=== PATIENT | male | born 1995 | race Caucasian/White ===

== ENCOUNTER 2020-07-25 20:17 | Emergency (ER) | payer BC, SELFPAY ==
[2020-07-25 20:22] VITALS: BP 133/97; PULSE 83; RESP 18; TEMP 37; O2SAT 97
--- NOTE | 2020-07-25 20:23 | DI.RAD_ITS ---
EXAM: XR KNEE LT 4V AP,LAT,LYNNE,PAT CLINICAL HISTORY: fell, laceration, r/o patella fracture. TECHNIQUE: 2D digital imaging was performed. COMPARISON: No exams were available for comparison FINDINGS: BONES: No acute fracture is present. No bony destructive lesion is seen. JOINTS: The knee is normally aligned. No joint effusion is seen. SOFT TISSUE: 1 cm deep laceration anterior to the patella. No radiopaque foreign body. IMPRESSION: Soft tissue laceration anterior to the patella. DATA REPOSITORY: RADIATION DOSE DELIVERED:
--- NOTE | 2020-07-25 20:24 | ED.GENADUL_ITS ---
Discharge Plan Disposition Patient Disposition: HOME Condition: Good Discharge Details Chief Complaint: Laceration Clinical Impression: Laceration of knee, left Primary Care Provider: [facility] ED Provider: Donovan Muñiz Home Meds and New Rx's Prescriptions: No Action No Known Home Meds RF: 0 Discharge Instructions Instructions: Laceration (ED) Additional Instructions: Please leave the dressing on for 24 hours, then you may remove and begin cleaning the wound at least twice a day with soap and water. Continue to apply antibiotic ointment. Do not directly soak the area. Watch for any signs of infection and return if any increasing redness, swelling, pain, drainage. Please return in 7 to 10 days to have the sutures removed. If you notice any worsening of your symptoms, or any new symptoms such as vomiting, diarrhea, fever, chills, shortness of breath, chest pain, numbness, weakness, or fainting , please return immediately to the emergency department for reevaluation. Please follow up with your primary care provider as soon as possible for reassessment and reevaluation. As always, it was a pleasure participating in your medical care today. Please take a multivitamin and vitamin C to help with skin healing. Please take Tylenol and Motrin to help with the swelling. Stand Alone Forms: Work Release Medical Decision Making 25-year-old male who presents for evaluation of laceration to the left knee. Patient states he was working on his ATV when he slipped in the peg hit his left knee causing a notable laceration. His tetanus was updated per the patient in 2014. He denies any numbness or tingling, he denies any weakness. He does have mild pain with walking ambulation. No other modifying factors. No other complaints at this time exam demonstrates an L-shaped laceration over the left knee. Tetanus is up-to-date. We will get an x-ray to evaluate for fracture of the patella. No evidence of tibial plateau tenderness. Will suture the lesion after washout. 9:58 PM X-ray was negative for acute process or fracture. 9 simple interrupted sutures were placed, patient tolerated this well. No evidence of deep involvement or capsular involvement from the knee. Patient's tetanus is up-to-date. Recommend Tylenol Motrin for pain. Discussed red flags which to return. I have extensively reviewed the treatment plan and discharge instructions with the patient. I have addressed all patient concerns at this time. The patient was made aware of what symptoms to monitor for that would warrant a return to the emergency department. Discussed the plan with the patient, they demonstrate verbal understanding and agreement with our assessment and plan at this time. FINDINGS: Bones/joints: Normal. Soft tissues: 1 cm deep laceration anterior to patella. No radiopaque foreign body demonstrated IMPRESSION: Laceration. Thank you for allowing us to participate in the care of your patient. Dictated and Authenticated by: Otis Ferro DO 07/25/2020 9:09 PM Eastern Time ([place] & [place]) HPI General Date/Time Provider Initiated Documentation: 07/25/20 20:21 . HPI Narrative: 25-year-old male who presents for evaluation of laceration to the left knee. Patient states he was working on his ATV when he slipped in the peg hit his left knee causing a notable laceration. His tetanus was updated per the patient in 2014. He denies any numbness or tingling, he denies any weakness. He does have mild pain with walking ambulation. No other modifying factors. No other complaints at this time Related Data Home Medications Medication Instructions Recorded Confirmed Unknown [No Known Home Meds] 07/01/15 07/25/20 Allergies Allergy/AdvReac Type Severity Reaction Status Date / Time hay Allergy Mild Uncoded 07/25/20 20:34 Review of Systems All systems reviewed & are unremarkable except as noted in HPI and below PFSH Social History Smoking/Tobacco Use Status: Never Alcohol Intake: current Alcohol Intake frequency: a few times a week Drug use: Occasionally Substance use type: marijuana Do you feel safe at home: Yes Do you feel safe in your relationship?: Yes Exam Narrative Exam Narrative: 1.Const: Well-nourished, Well-developed, appearing stated age 2.Eyes: PERRL, no conjunctival injection, and symmetrical lids. 3.ENT: Atraumatic external nose and ears. Moist MM. Neck: Symmetric, trachea midline, No thyromegaly. 4.CVS: +S1/S2, No murmurs or gallops. Peripheral pulses 2+ and equal in all extremities. Brisk capillary refill in all extremities. 5.RESP: Unlabored respiratory effort. Clear to auscultation bilaterally. No wheezes rales or rhonchi 6.GI: Soft, Nontender/Nondistended, No hepatosplenomegaly. No guarding or rebound. 7.MSK: The knee is stable to varus, valgus, and anterior drawer stress. No deformity. Pain over the patella. Patient is able to walk with mild limp. No edema or warmth to the joint. No ttp to the tibial plateau, or fibular head. 8.Skin: Warm, Dry. No rashes or lesions. 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 Sensation grossly intact, no focal neurologic deficits. 10.Psych: (AAO) x3. Appropriate mood and affect Procedures Laceration Laceration 1: Site: lower extremity (knee) Side (If applicable): left Size (cm): 6 Description: linear Depth: simple, single layer Local Anesthetic: Lidocaine 1% and with Epi Amount of anesthesia used (mL): 7 Pre-repair: wound explored, irrigated extensively and deep structures intact Skin layer closed with: nylon Size (cm): 4-0 Number of sutures: 9 Technique: simple, interrupted
[2020-07-25] MEDS: Lidocaine/Epinephri/Tetracaine Topical Gel 3 ML TP (20:26)
--- NOTE | 2020-07-25 21:09 | DI.VRAD_ITS ---
PROCEDURE INFORMATION: Exam: XR Left Knee Exam date and time: 07/25/2020 8:57 PM Age: 25 years old Clinical indication: Injury or trauma; Fall; Initial encounter; Laceration; Patella or knee; Left; Foreign body involvement not specified; Injury date: 07/25/20; Injury details: Fell and hit knee on foot peg of 4 hansen TECHNIQUE: Imaging protocol: XR Left knee. Views: 4 or more views. COMPARISON: No relevant prior studies available. FINDINGS: Bones/joints: Normal. Soft tissues: 1 cm deep laceration anterior to patella. No radiopaque foreign body demonstrated IMPRESSION: Laceration. Dictated and Authenticated by: Otis Ferro MD. Ordering:YVONNE Man MD
[2020-07-25 22:08] VITALS: BP 124/67; PULSE 87; RESP 18; O2SAT 97
== END 2020-07-25 22:05 | disposition home or self-care (01) ==
PROVIDERS: Emergency Provider Student in an Organized Health Care Education/Training Program
DX: S81.012A Laceration without foreign body, left knee, initial encounter (principal); W01.119A Fall on same level from slipping, tripping and stumbling with subsequent striking against unspecified sharp object, initial encounter
CPT/HCPCS: 12002; 99281; 73564

== ENCOUNTER 2020-08-04 19:15 | Emergency (ER) | payer SELFPAY ==
[2020-08-04 19:18] VITALS: BP 136/77; PULSE 97; RESP 14; TEMP 36.8; O2SAT 99
--- NOTE | 2020-08-04 19:19 | ED.GENADUL_ITS ---
Discharge Plan Disposition Patient Disposition: HOME Condition: Stable Discharge Details Clinical Impression: Visit for suture removal Primary Care Provider: [facility]Local ED Provider: Dean Lockhart Home Meds and New Rx's Prescriptions: No Action No Known Home Meds RF: 0 Discharge Instructions Instructions: Stitches Removal (ED) Additional Instructions: if you have spreading redness, yellow/white discharge or severe worsening pain return to the emergency department Medical Decision Making pt here for evaluation for suture removal. Had them placed over anterior left knee 10 days ago. No pain redness or discharge. HAs full rom of his knee and woud has no discharge or erythema and appears well healed. Will have nursing remove stitches and return precautions Differential Diagnosis Differential Diagnosis: suture removal, wound HPI General Mode of arrival: ambulatory . Date/Time Provider Initiated Documentation: 08/04/20 19:16 . Limitations to Documentation: no limitations . Information obtained by: patient . History of Present Illness 25 year old M presents to the emergency department with the chief complaint of suture removal, described as moderate, Patient started experiencing this day(s) (10) and it has been constant. No relieving factors improve symptom(s), No exacerbating factors reported . Patient notes no other symptoms.. Patient did receive the following treatments prior to arrival, none Related Data Home Medications Medication Instructions Recorded Confirmed Unknown [No Known Home Meds] 07/01/15 07/25/20 Allergies Allergy/AdvReac Type Severity Reaction Status Date / Time hay Allergy Mild Uncoded 07/25/20 20:34 General GRACE: 4 Review of Systems All systems reviewed & are unremarkable except as noted in HPI and below Constitutional Constitutional: Denies chills, Denies fever(s) and Denies weakness ENT Ears, Nose, Mouth, and Throat: Denies change in voice Cardiovascular Cardiovascular: Denies chest pain and Denies dyspnea Respiratory Respiratory: Denies cough and Denies dyspnea Gastrointestinal Gastrointestinal: Denies abdominal pain, Denies nausea and Denies vomiting Musculoskeletal Musculoskeletal: Denies joint swelling Neurologic Neurologic: Denies weakness Psychiatric Psychiatric: Denies depression [facility] Social History Smoking/Tobacco Use Status: Never Alcohol Intake: current Alcohol Intake frequency: a few times a week Drug use: Occasionally Substance use type: marijuana Do you feel safe at home: Yes Do you feel safe in your relationship?: Yes Exam Const General: no acute distress Orientation: alert [facility] Head: normal to inspection Ears: external ears normal General nose exam: external nose normal Mouth: moist mucous membranes Eyes General: appearance normal, both eyes and all related structures Neck Neck: normal visual inspection Resp Effort & Inspection: normal respiratory effort and able to speak in complete sentences Cardio Rate: regular rate Skin General skin exam: no rashes or lesions noted Neuro General: patient alert and patient oriented x3 Extrem General: full ROM and capillary refill normal Psych Mental Status: mental status grossly normal
== END 2020-08-04 19:27 | disposition home or self-care (01) ==
LOC: ER 08-05 07:02
PROVIDERS: Emergency Provider Emergency Medicine
DX: S81.012D Laceration without foreign body, left knee, subsequent encounter (principal); X58.XXXD Exposure to other specified factors, subsequent encounter; Z48.02 Encounter for removal of sutures